=== PATIENT | female | born 1960 | race Asian ===

== ENCOUNTER 2017-11-02 14:32 | Emergency (ER) | payer MEDICARE ==
[~2017-11-02] VITALS: Ht 165.1 cm; Wt 64.9 kg
[2017-11-02 14:40] VITALS: BP_SYST 147
[2017-11-02 15:36] VITALS: BP_SYST 147
== END 2017-11-02 15:36 | disposition home or self-care (01) ==
LOC: SED 14:32
DX: S05.01XA Injury of conjunctiva and corneal abrasion without foreign body, right eye, initial encounter (principal); R03.0 Elevated blood-pressure reading, without diagnosis of hypertension; E11.9 Type 2 diabetes mellitus without complications; Z88.1 Allergy status to other antibiotic agents; X58.XXXA Exposure to other specified factors, initial encounter; Y93.02 Activity, running; Y92.89 Other specified places as the place of occurrence of the external cause; Y99.8 Other external cause status
CPT/HCPCS: 99283